=== PATIENT | female | born 1985 | race Caucasian/White ===

== ENCOUNTER → 2021-04-26 | Outpatient (CLI) | payer OTHER ==
[~2021-04-26] MED LIST: Birth control PO
== END | disposition home or self-care (01) ==
LOC: STAR 08:11
PROVIDERS: ATTEND Plastic Surgery
DX: Z20.822 Contact with and (suspected) exposure to COVID-19 (principal)
CPT/HCPCS: U0003; U0005

== ENCOUNTER 2021-04-30 10:12 | Day surgery (SDC) | payer BC, OTHER ==
[~2021-04-30] VITALS: Ht 152.4 cm; Wt 56.4 kg
[2021-04-30] MEDS ORDERED: LIDOCAINE/PF 1%, 30ML ONE (10:24)
[2021-04-30] MEDS ORDERED: BUPIVACAINE/PF 0.5% ONE (10:24)
[2021-04-30] MEDS ORDERED: EPINEPHRINE 1 MG/ML, 1ML ONE (10:24)
[2021-04-30] MEDS ORDERED: FENTANYL PF 250 MCG/5ML ONE (10:52)
[2021-04-30] MEDS ORDERED: MIDAZOLAM 1 MG/ML, 2ML ONE (10:52)
[2021-04-30 10:56] VITALS: BP 126/83
[2021-04-30 10:58] LABS: HCG UR SG 1.015 (1.003-1.030)
[2021-04-30] MEDS ORDERED: CHLORHEXIDINE 15 ML UDC ONE (10:58)
[2021-04-30] MEDS ORDERED: LACTATED RINGERS 1,000 ML IV SCH (11:00)
[2021-04-30] MEDS ORDERED: CHLORHEXIDINE 15 ML UDC PO ONE (11:00)
[2021-04-30] MEDS ORDERED: SCOPOLAMINE 1MG PATCH TD ONE (11:45)
[2021-04-30] MEDS ORDERED: DIPHENHYDRAMINE 50 MG/ML, 1ML IVPush PRN (12:00)
[2021-04-30] MEDS ORDERED: hydrALAzine 20 MG/ML, 1ML IV PRN (12:00)
[2021-04-30] MEDS ORDERED: HALOPERIDOL 5 MG/ML IV PRN (12:00)
[2021-04-30] MEDS ORDERED: ACETAMINOPHEN 325 MG TABLET PO PRN (12:00)
[2021-04-30] MEDS ORDERED: OXYcodone 5 MG/5 ML ORAL.SOL UDC PO PRN (12:00)
[2021-04-30] MEDS ORDERED: MEPERIDINE/PF 25MG/0.5ML IVPush PRN (12:00)
[2021-04-30] MEDS ORDERED: LABETALOL 5MG/ML, 20ML IV PRN (12:00)
[2021-04-30] MEDS ORDERED: PROMETHAZINE 25 MG/ML, 1ML IVPush PRN (12:00)
[2021-04-30] MEDS ORDERED: HYDROmorphone 1 MG/ML, 1ML INJ IVPush PRN (12:00)
[2021-04-30] MEDS ORDERED: TRANEXAMIC ACID 100 MG/ML, 10ML ONE (12:49)
[2021-04-30] MEDS ORDERED: PROPOFOL 10 MG/ML, 20ML ONE (13:39)
[2021-04-30] MEDS ORDERED: ONDANSETRON 2MG/ML, 2ML ONE (13:39)
[2021-04-30] MEDS ORDERED: DEXAMETHASONE 4 MG/ML, 1ML ONE (13:39)
[2021-04-30] MEDS ORDERED: CEFAZOLIN 1,000 MG ONE (13:39)
[2021-04-30] MEDS ORDERED: ROCURONIUM 10MG/ML,5ML ONE (13:39)
[2021-04-30] MEDS ORDERED: GLYCOPYRROLATE 0.2MG/1ML, 5ML ONE (13:39)
[2021-04-30] MEDS ORDERED: NEOSTIGMINE 1 MG/ML, 10ML ONE (13:39)
[2021-04-30] MEDS ORDERED: SUCCINYLCHOLINE 20 MG/ML, 10ML ONE (13:39)
[2021-04-30] MEDS ORDERED: MEPERIDINE/PF 25MG/ML,1ML ONE (14:39)
[2021-04-30] MEDS ORDERED: FENTANYL PF 100 MCG/2ML ONE (14:52)
[2021-04-30] MEDS ORDERED: ACETAMINOPHEN 650 MG/20.3 ML UDC ONE (14:52)
[2021-04-30] MEDS ORDERED: OXYcodone 5 MG/5 ML ORAL.SOL UDC ONE (14:52)
[2021-04-30] MEDS: FENTANYL PF 100 MCG/2ML IV PRN ×2 (14:56→15:07)
== END 2021-04-30 16:30 | disposition home or self-care (01) ==
LOC: OUT 10:12
PROVIDERS: ATTEND Plastic Surgery
DX: N62 Hypertrophy of breast (principal)
CPT/HCPCS: 19318; 81025; 88305; C1729; J0171; J0330; J0690; J1100; J2175; J2250; J2405; J2704; J2710; J3010